=== PATIENT | female | born 1950 | race Caucasian/White ===

== ENCOUNTER 2024-02-08 13:00 | Outpatient (RCR) | payer MEDICARE, SELFPAY | END 2024-06-07 23:59 | disposition home or self-care (01) | PROVIDERS: PCP Family Medicine; Visit Provider Family Medicine | DX: M89.9 Disorder of bone, unspecified (principal); M25.551 Pain in right hip; M25.552 Pain in left hip; Z51.89 Encounter for other specified aftercare | CPT/HCPCS: 97110; 97162 ==